=== PATIENT | male | born 1975 ===

== ENCOUNTER 2016-04-26 20:51 | Emergency (ER) | payer SELFPAY ==
[2016-04-26 21:01] VITALS: BP 140/80; PULSE 106; RESP 20; TEMP 99; O2SAT 97
--- NOTE | 2016-04-26 21:13 | EDPHY ---
H & P Stated Complaint: pre-existing left leg wound with fever, confusion starting 2 days ago HPI/ROS: CHIEF COMPLAINT: HISTORY OF PRESENT ILLNESS: REVIEW OF SYSTEMS: A ten point review of systems was performed and is negative with the exception of the items mentioned in the HPI. - Personal History Current Tetanus/Diphtheria Vaccine: No Current Tetanus Diphtheria and Acellular Pertussis (TDAP): No - Medical/Surgical History Hx Asthma: No Hx Chronic Respiratory Disease: No Hx Diabetes: No Hx Cardiac Disease: No Hx Renal Disease: No Hx Cirrhosis: No Hx Alcoholism: No Hx HIV/AIDS: No Hx Splenectomy or Spleen Trauma: Yes Other PMH: mental health history; has been off wellbutrin. PSH: splenectomy - Social History Smoking Status: Never smoked - Physical Exam Exam: General Appearance: Alert. Vital signs reviewed. * Eyes: Pupils equal and round, no conjunctival injection, no discharge. Anicteric. ENT, Mouth: Mucous membranes are moist, no oropharyngeal erythema or edema. Neck: No lymphadenopathy, supple. Respiratory: Lungs are clear to auscultation; no wheezes, rales, or rhonchi. Cardiovascular: Regular rate and rhythm; no murmur, rub, or gallop. Gastrointestinal: Abdomen is soft and nontender, no masses or organomegaly, bowel sounds normal. Skin: Warm and dry, no rashes on exposed skin, normal color. Back: Nontender to palpation over the thoracolumbar spine. No CVAT. Extremities: No lower extremity edema, no calf tenderness or swelling. Neurological: Alert and oriented. Moving all four extremities easily and equally. Cranial nerves II through XII are examined and are intact (visual acuity not tested). Strength is 5 over 5 bilaterally with testing of all major motor groups. Sensation is intact to light touch over all 4 extremities. Deep tendon reflexes are 2+ in the biceps and knees bilaterally. Gait is normal. [id number] is performed accurately. Psychiatric: Normal affect. Constitutional: Initial Vital Signs Temperature (C) 37.2 C 04/26/16 20:57 Heart Rate 106 H 04/26/16 20:57 Respiratory Rate 20 04/26/16 20:57 Blood Pressure 140/80 H 04/26/16 20:57 O2 Sat (%) 97 04/26/16 20:57 O2 Delivery Mode Room Air Allergies/Adverse Reactions: mirtazapine [From Remeron] Allergy (Verified 04/26/16 20:56) Penicillins Allergy (Verified 04/26/16 20:56) Home Medications: Medication Instructions Recorded Acyclovir 04/26/16 Wellbutrin Sr 04/26/16 Departure - Departure Condition: Fair Physician Review and Approval Statement: 04/26/16 21:13 Portions of this note were transcribed by the manager medical. I, Dr. Isabel Linares, personally performed the history, physical exam, and medical decision- making; and confirmed the accuracy of the information in the transcribed note.
== END 2016-04-26 21:15 | disposition left against medical advice (07) ==
DX: Z53.21 Procedure and treatment not carried out due to patient leaving prior to being seen by health care provider (principal)